=== PATIENT | female | born 1945 | race Caucasian/White ===

== ENCOUNTER 2016-08-04 03:42 | Observation (INO) | payer OTHER ==
[~2016-08-04] VITALS: Ht 165.1 cm; Wt 81.6 kg
[~2016-08-04 03:42] MED LIST: LISINOPRIL2.5 M1 PO; NASONEX NASAL SPRAY NASB; NASONEX17 GM NAS; PERCOCET 325 MG1 TA2 PO; VICODIN5-300 PO
[2016-08-04] MEDS ORDERED: LISINOPRIL5 M1 PO (06:27)
--- NOTE | 2016-08-04 10:49 | Admission Core Measures ---
Admission Meds I reviewed the following Meds: Current Medications Sig/Carolyn Start time Last Medication Dose Stop Time Status Admin Cefazolin Sodium 2,000 MG ONCE 08/04 0000 NR (Kefzol-Ancef Inj) 08/04 2359 Lisinopril 2.5 MG QPM 08/04 2200 UNVr (Prinivil) Lisinopril 5 MG .[QHS] 08/04 1045 UNVr (Prinivil) Sodium Chloride 2 SPRAY DAILY 08/05 1000 UNVr (Nasal) Acute Coronary Syndrome Inclusion Criteria ACS Diagnosis No Inpatient Core Measures LDL Reminder: If No, please order W/I first 24hr of stay Congestive Heart Failure Inclusion Criteria CHF Diagnosis No Cerebrovascular accident Inclusion Criteria CVA/TIA Diagnosis No Inpatient Core Measures Bedside Swallow Eval Reminder: If BSE failed, place ST order Antithrombotic Reminder: Order Antithrombotic Medication by end of day 2 Antithrombotic Reminder: Document Reason Antithrombotic Not ordered by end of day 2 AFIB/Flutter Reminder: If Present, add to problem list AFIB/Flutter Reminder: Order Anticoag Medication for pts with AFIB/Flutter Atherosclerosis Reminder: If Present, add to problem list LDL Reminder: If No, please order W/I first 24hr of stay PT Order Reminder: If No, please order Venous thromboembolism Inpatient Core Measures VTE Risk Factors: Age > 40, Surgery VTE Prophylaxis Ordered Inpt Mech & Pharm No Mech VTE prophylaxis d/t No contraindications No VTE Pharm Prophylaxis d/t No contraindications Inclusion Criteria - Per Current guidelines, there needs to be overlap - treatment for the first 5 days of Warfarin therapy. - Parenteral Anticoagulation (IV or SC) needs to be - given along with Warfarin therapy. VTE Diagnosis No VTE Type NONE VTE Confirmed by (Test) NONE Problem List As ranked by this Provider includes Assessment & Plan 1. History of repair of hiatal hernia HOME MEDS Home Med List Lisinopril 2.5 MG TABLET 1 TAB PO QPM BP (Reported) Lisinopril 5 MG TABLET 5 MG PO QHS HIGH BLOOD PRESSURE (Reported)
--- NOTE | 2016-08-04 11:17 | RADIOLOGY REPORT ---
EXAMINATION: XR PORTABLE CHEST CLINICAL INFORMATION: Status post hiatal hernia repair. Evaluate for pneumothorax. COMPARISON: Chest CT 06/29/2016 TECHNIQUE: Portable view of the chest was obtained. FINDINGS: Cardiac leads overlie the chest. Lung volumes are low. No dense consolidation, edema, or effusion. There is no definite pneumothorax visualized. The cardiomediastinal silhouette is within normal limits. No acute osseous abnormality. IMPRESSION: No definite pneumothorax visualized. No consolidation.
--- NOTE | 2016-08-04 11:18 | Operative Report ---
Operative/Inv Procedure Report Surgery Date: 08/04/16 Name of Procedure: Laparoscopic recurrent hiatal hernia repair with mesh and Pete fundoplication Pre-Operative Diagnosis: Recurrent hiatal hernia Post-Operative Diagnosis: Same Estimated Blood Loss: scant Surgeon/Marine Engineering Consultant: SKINNY JADE,YOLANDA Ross/Leoncio ECKERT Anesthesia: general endotracheal tube Implants: Cromona bio a mesh Operative/Procedure Note Note: After consent she is brought to the operating room and laid supine. Gen. anesthesia was obtained and she's placed in lithotomy position. Hartmann catheterization was performed. Her abdomen was then prepped and draped. The skin above the umbilicus was infiltrated with local anesthesia transverse incision made through pre-existing scar. We dissected down to the fascia and grasped with Yoan's. Fascial incision was made sharply and stay sutures placed. A blunt Osorio port was placed. Pneumoperitoneum was achieved. A 5 mm port was placed in the right upper quadrant and then extracted and replaced with a Katiuska retractor. The liver edge was lifted up and attached the bed. 3, 5 mm ports were then placed in the epigastrium and left upper quadrant after local anesthesia was instilled and under direct vision the camera. There were some adhesions to the hiatus. There was herniation of the fundus up into the chest. We took down the adhesions with the Sonicision device. We delineated the crura and incised the sac anteriorly and took it down on both sides with the Sonicision device. We circumferentially mobilized the sac through the mediastinal plane. A umbilical tape was then placed around the GE junction and tied to itself to aid in retraction. The sac and fundus was then circumferentially mobilized from the mediastinal tissues with Sonicision device. At this point we had at least 3 cm and Toradol esophagus. The previously placed crural sutures were still intact. It appeared that the hiatal opening had just stretched open. We therefore closed it further with 2 more sutures placed posteriorly with interrupted 0 Ethibond. The fundoplication was partially intact. We mobilized it with the Sonicision and memory able to rewrap the GE junction/lower esophagus with 3 interrupted 2-0 Vicryl sutures. One suture encompass the anterior esophagus to keep it fixed. At the conclusion of the operation the umbilical tape was extracted and a piece of Cromona bio a mesh was placed posterior to the fundoplication to cover the crural sutures. We then extracted the retractors and remove the ports. The fascia was closed with 0 Vicryl suture. Skin incisions closed with 4-0 Vicryl. Steri-Strips and sterile dressing applied. Sponge and needle counts are correct CC: ANSHU JADE,Aarti GLASS; CAM JADE,MICHELLE
--- NOTE | 2016-08-04 13:30 | PN- General Surgery ---
Subjective Subjective: The patient was seen this afternoon postoperatively. She reports that her pain is under adequate control and she is just having some mild left shoulder pain. She denies any chest pain, palpitations, or difficulty breathing. She denies any nausea and reports feeling thirsty. Objective Vital Signs and I&Os Vital signs: Blood pressure 120/70, pulse 80, O2 saturation 95% on 2 L via nasal cannula, temperature 98 I's and O's: 2300 ML's in of lactated Ringer's/125 ML's out of urine via Hartmann catheter/EBL less than 50 Physical Exam: Gen.: Alert and obvious distress Skin: Warm and dry Cardiac: S1-S2 regular Pulmonary: Bilateral breath sounds are equal and decreased at bases Abdomen: Soft, appropriate incisional tenderness, bowel sounds sluggish. Port sites are clean, dry, and intact without signs of infection. Extremities: Bilateral lower extremities are warm without calf tenderness or significant edema. Assessment/Plan Assessment/Plan Assessment: 71-year-old female status post reduction and repair of hiatal hernia. Postoperative the patient is progressing as expected and her pain is under relatively good control. Plan: Advanced to a fundoplication diet as tolerated Out of bed and ambulate Strict I's and O's Nutritional consults were fundoplication education GI and DVT prophylaxis Continue current pain regiment Hep-Lock IV fluids and follow-up laboratory studies in the morning Resume medications Core Measures/Miscellaneous Hartmann Catheter Date In: 08/04/16 Still Needed? Yes Venous Thromboembolism VTE Risk Factors: Age > 40, Surgery VTE Contraindications: No Contraindications VTE [facility] VTE Diagnosis: No VTE Type: NONE VTE Confirmed by (Test): NONE Beta John Is Beta John a Home Med? No Antibiotics Is Patient on Antibiotics? Yes If Yes: prophylaxis
[2016-08-04 15:54] VITALS: BP 120/78
--- NOTE | 2016-08-04 16:18 | NUR ---
ADMISSION NOTE- PT ARRIVED TO FLOOR AT 1530 FROM PACU A/O X 3, STATING PAIN TO ABD 4-5/10 AT THIS TIME, DENIES NAUSEA, HYPOACTIVE BS TO ABD X 4 AT THIS TIME, ON CLEAR LIQUID DIET, TOLERATING WELL, MEDICATED PER EMAR WITH IV MORPHINE FOR PAIN, VSS, 4 ABD BANDAIDS CD+I, IVF INFUSING ORDERED. POPE DRAINING CLEAR YELLOW URINE WILL CONTINUE TO MONITOR.
[2016-08-04 18:00] VITALS: BP 112/76
--- NOTE | 2016-08-04 20:35 | NUR ---
PT STATED THAT SHE TAKES LISINOPRIL 5 MG PO AT HS, CURRENT ORDER FOR LISINOPRIL IS 7.5 MG. BP RIGHT NOW 110/60, HR 75. CALL PLACED TO SURGICAL TOMEKA BREAUX AT THIS TIME. ORDER CHANGED TO 5MG PO LISINOPRIL HS, BUT HOLDING TONIGHT PER BP.
[2016-08-04 22:13] VITALS: BP 126/80
[2016-08-05 01:53] VITALS: BP 116/60
[2016-08-05 06:40] VITALS: BP 142/70
--- NOTE | 2016-08-05 07:28 | PN- General Surgery ---
Subjective Subjective: NAEO. Patient without new c/o. Patient received IV morphine for pain overnight but did not like the way it made her feel. Tolerating clears, no nausea or emesis. +flatus, no BM. Has not been OOB. Scales catheter in place. Denies CP /SOB. Objective Vital Signs and I&Os Vital Signs Date Time Temp Pulse Resp B/P Pulse O2 O2 Flow FiO2 Ox Delivery Rate 08/05 0640 97.6 58 18 142/70 96 Room Air 08/05 0153 97.9 58 18 116/60 96 CPAP 08/04 2213 97.6 76 20 126/80 94 Room Air 08/04 2205 97.8 08/04 2149 70 11/60 08/04 2131 100.3 08/04 1800 96.7 75 18 112/76 95 08/04 1554 97.8 80 20 120/78 92 Room Air Intake & Output 08/05 0800 08/05 0000 08/04 1600 08/04 0800 08/04 0000 08/03 1600 Intake Total 500 Output Total 1500 700 Balance -1500 -200 Intake, Oral 500 Number 0 Bowel Movements Output, Urine 1500 700 Patient 180 lb Weight Physical Exam: General: NAD, comfortable, A&Ox3 Chest: NRD, breathing comfortably on RA. RRR. Abdomen: soft, nondistended. Appropriately TTP. Incision sites c/d/i. +Bowel sounds x4 quadrants Ext: No calve swelling/TTP, neurovascularly intact bilateral lower extremities Current Medications: Current Medications Sig/Carolyn Start time Last Medication Dose Route Stop Time Status Admin Acetaminophen 1,000 MG Q6P PRN 08/04 1600 AC 08/05 IV 0610 Cefazolin Sodium 2 GM 0530 08/05 0530 DC 08/05 N/A 1 UNIT IV 08/05 0559 0639 Cefazolin Sodium 2 GM IQ8 08/04 1600 DC 08/04 N/A 1 UNIT IV 08/05 0029 2138 Cefazolin Sodium 2,000 MG ONCE 08/04 0000 DC IV 08/04 2359 Dextrose/Sodium 1,000 ML .[id number] 08/04 1600 AC 08/05 Chloride IV 0256 Heparin Sodium 5,000 UNIT Q8 08/04 1400 AC 08/05 (Porcine) SC 0643 Hydromorphone HCl 2 MG .STK-MED ONE 08/04 1121 DC IM 08/04 1122 Lisinopril 5 MG AT BEDTIME 08/04 2200 DC PO Lisinopril 2.5 MG QPM 08/04 2200 DC PO Lisinopril 5 MG AT BEDTIME 08/04 2200 CAN PO Lisinopril 2.5 MG QPM 08/04 2200 DC PO Lisinopril 7.5 MG QPM 08/04 2200 DC PO Lisinopril 5 MG QPM 08/04 2200 AC PO Morphine Sulfate 2 MG Q2P PRN 08/04 1600 AC 08/04 IV 2016 Ondansetron HCl 4 MG Q6P PRN 08/04 1600 AC IV Pantoprazole Sodium 40 MG DAILY 08/05 1000 AC IV Promethazine HCl 12.5 MG Q6P PRN 08/04 1600 AC IV 08/11 1044 Sodium Chloride 2 SPRAY DAILY 08/05 1000 DC YUNIOR Sodium Chloride 2 SPRAY DAILY 08/05 1000 AC YUNIOR Results Last 48 Hours of Labs: Laboratory Tests 08/05 0637 Chemistry Sodium Pending Potassium Pending Chloride Pending Carbon Dioxide Pending Anion Gap Pending BUN Pending Creatinine Pending BUN/Creatinine Ratio Pending Assessment/Plan Assessment/Plan 71yo F POD#1 s/p laparoscopic hiatal hernia repair with fundoplication. AVSS, patient progressing well thus far. - fundo diet - pain control - DC scales - I/O's - OOB and ambulate - sc heparin and ALPS while in bed - f/u labs - likely dc home today - will d/w attending Core Measures/Miscellaneous Scales Catheter Date In: 08/04/16 Venous Thromboembolism VTE Risk Factors: Age > 40, Surgery VTE Contraindications: No Contraindications VTE Prophylaxis Ordered Inpt Mech & Pharm VTE Diagnosis: No VTE Type: NONE VTE Confirmed by (Test): NONE Beta John Is Beta John a Home Med? No Antibiotics Is Patient on Antibiotics? Yes If Yes: prophylaxis
[2016-08-05] MEDS ORDERED: PERCOCET 5-3251 EACH PO (07:43)
[2016-08-05] MEDS ORDERED: COLACE100 M1 PO (07:43)
--- NOTE | 2016-08-05 07:47 | Patient Discharge Instructions ---
Discharge Instructions General Discharge Information You were seen/treated for: Recurrent hiatal hernia You had these procedures: 08/04/16 Laparoscopic recurrent hiatal hernia repair with mesh and Pete fundoplication Watch for these problems: Redness, swelling, purulent drainage, fever, signs of infection. Uncontrolled pain. Excessive bleeding. Inability to tolerate diet or have bowel movements. Chest pain, shortness of breath. Do not soak the wound: Yes No bath, but you may shower: Yes Other wound care: Leave steri strips in place for 7-10 days. Diet Continue normal diet: No Recommended Diet: Fundoplication diet Additional DIET Information: Information given by R.Nelly Activity Full Activity/No Limits: No Pounds, do NOT lift more than: 10 Other activity limits: No strenuous activity or exercise Acute Coronary Syndrome Inclusion Criteria At DC or during hospital stay patient has or had the following: ACS DIAGNOSIS No Discharge Core Measures Meds if any: Prescribed or Continued at Discharge Meds if any: NOT Prescribed or Continued at Discharge Congestive Heart Failure Inclusion Criteria At DC or during hospital stay patient has or had the following: CHF DIAGNOSIS No Discharge Core Measures Meds if any: Prescribed or Continued at Discharge Meds if any: NOT Prescribed or Continued at Discharge Cerebrovascular accident Inclusion Criteria At DC or during hospital stay patient has or had the following: CVA/TIA Diagnosis No Discharge Core Measures Meds if any: Prescribed or Continued at Discharge Meds if any: NOT Prescribed or Continued at Discharge Venous thromboembolism Inclusion Criteria VTE Diagnosis No VTE Type NONE VTE Confirmed by (Test) NONE Discharge Core Measures - Per Current guidelines, there needs to be overlap - treatment for the first 5 days of Warfarin therapy. - If discharged on Warfarin prior to 5 days of - overlap therapy, the patient will need to be - assessed for post discharge needs including - *Post discharge parental anticoagulation - *Warfarin and/or parental anticoagulation education - *Follow up date to check INR post discharge At least 5 days overlap therapy as Inpatient No Meds if any: Prescribed or Continued at Discharge Note: Overlap Therapy is Warfarin and Anticoagulant Meds if any: NOT Prescribed or Continued at Discharge
[2016-08-05 09:46] VITALS: BP 142/70
== END 2016-08-05 13:07 ==
LOC: STS 03:42 → 2NA 09:15 → PACUH 09:15 → 2NA 15:33
PROVIDERS: ADMIT Surgery
DX: K44.9 Diaphragmatic hernia without obstruction or gangrene (principal); I10 Essential (primary) hypertension; G47.33 Obstructive sleep apnea (adult) (pediatric); E66.9 Obesity, unspecified; K21.9 Gastro-esophageal reflux disease without esophagitis; Z68.29 Body mass index [BMI] 29.0-29.9, adult; E04.1 Nontoxic single thyroid nodule
CPT/HCPCS: 6030; 36415; 82436; 87086; 96372; C1781; G0378; J0131; J0690; J1644; J1885; J2270; J2405; J2550; J7042